=== PATIENT | male | born 1955 | race Caucasian/White ===

== ENCOUNTER 2018-03-17 07:29 | Day surgery (SDC) | payer MEDICAID ==
[~2018-03-17 07:29] MED LIST: Metoclopramide 10 MG/2 ML SDV IV PRN; Sodium Chloride 0.9% 1,000 ML IV SCH; Sodium Chloride 0.9% 10 ML Syringe FLUSH PRN
[2018-03-17] MEDS ORDERED: Propofol 200 MG/20 ML SDV ONE (09:00)
--- NOTE | 2018-03-17 16:19 | OR ---
DATE OF OPERATION: 03/17/2018 PREOPERATIVE DIAGNOSIS: Screening colonoscopy. POSTOPERATIVE DIAGNOSIS: Normal colonoscopy. OPERATION: Screening colonoscopy. COMPLICATIONS: None. DRAINS: None. SPECIMENS: None. ESTIMATED BLOOD LOSS: Zero. ANESTHESIA: General propofol anesthesia. INDICATION: Mr. Osorio is a 62-year-old gentleman who is of average risk, no family history, and has no new symptoms. He does mention chronic loose stools, but this has been present for many years. He has no weight loss. The above-mentioned procedure was explained. The risks, benefits, and complications were explained. The patient understood and agreed and he was brought to the operating room. DESCRIPTION OF PROCEDURE: The patient was brought to the operating room and placed in a left lateral decubitus position on the operating room table. Satisfactory general propofol anesthesia was administered. We began by performing a rectal examination, which was within normal limits. I then placed the endoscope by finger introduction into the rectum and subsequently advanced this to the level of the cecum. The cecum was identified by the cecal strap and the ileocecal valve. We were able to intubate the ileocecal valve and this appeared normal as well. I then subsequently withdrew the endoscope and careful evaluation of mucosa was carried out on withdrawal. There were no polyps, no neoplastic growths, no telangiectasias, or diverticula. There was a minor amount of increased vascularity in the cecum, however, this was likely related to insufflation. The remainder of the colon was normal. We then performed a retroflexion maneuver in the rectum and this appeared normal. The colon was then decompressed and the endoscope was withdrawn. The patient tolerated the procedure well. There were no complications. Instrument count was correct. The patient was awoken in the OR and taken to the PACU for recovery. Recommend followup colonoscopy in 10 years. NAEEM/[id number] /[id number]
== END 2018-03-17 10:35 | disposition home or self-care (01) ==
LOC: LB.SDS 07:29
PROVIDERS: ATTEND Surgery
DX: Z12.11 Encounter for screening for malignant neoplasm of colon (principal); I10 Essential (primary) hypertension; E78.5 Hyperlipidemia, unspecified; K21.9 Gastro-esophageal reflux disease without esophagitis; E78.00 Pure hypercholesterolemia, unspecified
CPT/HCPCS: 45378; J2704; J7040; J7030